=== PATIENT | male | born 1965 | race African-American/Black ===

== ENCOUNTER 2017-01-15 14:56 | Inpatient (IN) | payer MEDICARE, OTHER ==
[2017-01-15 17:30] VITALS: BMI 23.2
--- NOTE | 2017-01-15 19:34 | HP ---
Admission ROS [facility] Chief Complaint: I WANT TO GO TO REHAB Allergies/Adverse Reactions: Allergies Allergy/AdvReac Type Severity Reaction Status Date / Time No Known Allergies Allergy Verified 01/15/17 19:29 History of Present Illness: 51 YEARS OLD MALE WITH LONG HISTORY OF ALCOHOL COCAINE DEPENDENCE, HAS +PPD AND DEPRESSION IS ADMITTED TO REHAB Exam Limitations: No Limitations - Ebola screening Have you traveled outside of the country in the last 21 days: No Have you had contact with anyone from an Ebola affected area: No Have you been sick,other than usual withdrawal symptoms: No Do you have a fever: No - Review of Systems Constitutional: Loss of Appetite, Unintentional Wgt. Loss, Unexplained wgt Loss EENT: reports: No Symptoms Reported Respiratory: reports: No Symptoms reported Cardiac: reports: No Symptoms Reported GI: reports: No Symptoms Reported : reports: No Symptoms Reported Musculoskeletal: reports: Back Pain (SINCE 1989) Integumentary: reports: No Symptoms Reported Neuro: reports: No Symptoms reported Endocrine: reports: No Symptoms Reported Hematology: reports: No Symptoms Reported Psychiatric: reports: Judgement Intact, Orientated x3, Depressed Other Systems: Reviewed and Negative Patient History - Patient Medical History Hx Anemia: No Hx Asthma: No Hx Chronic Obstructive Pulmonary Disease (COPD): No Hx Cancer: No Hx Cardiac Disorders: No Hx Congestive Heart Failure: No Hx Hypertension: No Hx Hypercholesterolemia: No Hx Pacemaker: No HX Cerebrovascular Accident: No Hx Seizures: No Hx Dementia: No Hx Diabetes: No Hx Gastrointestinal Disorders: No Hx Liver Disease: No Hx Genitourinary Disorders: No Hx Sexually Transmitted Disorders: No Hx Renal Disease (ESRD): No Hx Thyroid Disease: No Hx Human Immunodeficiency Virus (HIV): No Hx Hepatitis C: No Hx Depression: Yes Hx Suicide Attempt: No Hx Bipolar Disorder: No Hx Schizophrenia: No - Patient Surgical History Past Surgical History: Yes Hx Neurologic Surgery: No Hx Cataract Extraction: No Hx Cardiac Surgery: No Hx Lung Surgery: Yes (RIGHT 1990) Hx Breast Surgery: No Hx Breast Biopsy: No Hx Abdominal Surgery: No Hx Appendectomy: No Hx Cholecystectomy: No Hx Genitourinary Surgery: No Hx Orthopedic Surgery: No Anesthesia Reaction: No - PPD History Previous Implant?: Yes Documented Results: Positive w/o proof Implanted On Prior [facility] Admission?: No PPD to be Administered?: No - Smoking Cessation Smoking history: Former smoker Have you smoked in the past 12 months: No Hx Chewing Tobacco Use: No Initiated information on smoking cessation: No - Substance & Tx. History Hx Alcohol Use: Yes Hx Substance Use: Yes Substance Use Type: Alcohol, Cocaine Hx Substance Use Treatment: Yes (2013 DETOX [facility]) - Substances Abused Alcohol Route: Oral Frequency: 3-6 times per week Amount used: [id number]+PINT VOLKA Age of first use: 16 Date of Last Use: 01/12/17 Cocaine Route: Smoking Frequency: 3-6 times per week Amount used: 300$ Age of first use: 18 Date of Last Use: 01/14/17 Family Disease History - Family Disease History Family Disease History: CA: Mother (), Other: Father (NO CONTACT), Mother Admission Physical Exam S - Vital Signs Vital Signs: Vital Signs - 24 hr 01/15/17 17:27 Temperature 97.2 F L Pulse Rate 86 Respiratory 20 Rate Blood Pressure 105/67 - Physical General Appearance: Yes: No Apparent Distress, Appropriately Dressed, Thin HEENTM: Yes: Hearing grossly Normal, Normal ENT Inspection, Normocephalic, Normal Voice Respiratory: Yes: Chest Non-Tender, Lungs Clear, Normal Breath Sounds, No Respiratory Distress, No Accessory Muscle Use Neck: Yes: Supple, Trachea in good position Breast: Yes: Breasts Symetrical Cardiology: Yes: Regular Rhythm, Regular Rate, S1, S2 Abdominal: Yes: Normal Bowel Sounds, Non Tender, Soft Genitourinary: Yes: Within Normal Limits Back: Yes: Normal Inspection Musculoskeletal: Yes: full range of Motion, Gait Steady, Back pain Extremities: Yes: Normal Range of Motion, Non-Tender, Inflammation Neurological: Yes: Alert, Motor Strength 5/5, Normal Response, Depressed Affect Integumentary: Yes: Normal Color, Warm Lymphatic: Yes: Within Normal Limits - Diagnostic (1) Alcohol dependence with uncomplicated withdrawal Current Visit: Yes Status: Acute (2) Cocaine dependence, uncomplicated Current Visit: Yes Status: Chronic (3) Weight loss Current Visit: Yes Status: Acute (4) Chronic back pain Current Visit: Yes Status: Chronic Qualifiers: Back pain location: low back pain Back pain laterality: bilateral Sciatica presence: with sciatica Sciatica laterality: bilateral sciatica Qualified Code(s): M54.42 - Lumbago with sciatica, left side; M54.41 - Lumbago with sciatica, right side; G89.29 - Other chronic pain (5) Depression (emotion) Current Visit: Yes Status: Resolved Qualifiers: Depression Type: dysthymia Qualified Code(s): F34.1 - Dysthymic disorder (6) Positive PPD, treated Current Visit: Yes Status: Resolved Cleared for Admission [facility] - Detox or Rehab [facility] Level of Care: Observation Bed Detox Regimen/Protocol: Not Applicable Claeared for Rehab Admission: Yes [facility] Breath Alcohol Content Breath Alcohol Content: 0 Urine Drug Screen - Results Drug Screen Negative: No Urine Drug Screen Results: THC-Marijuana, EUGENE-Cocaine
[2017-01-15] MEDS ORDERED: ACETAMINOPHEN 325 MG TABLET (FP) PO PRN (19:38)
[2017-01-15] MEDS ORDERED: MAGNESIUM CITRATE 300 ML BOTTLE PO PRN (19:38)
[2017-01-15] MEDS ORDERED: hydrOXYzine PAMOATE 50 MG CAPSULE (FP) PO PRN (19:38)
[2017-01-15] MEDS ORDERED: MAG HYDROX/AL HYDROX/SIMETH 30 ML UNIT-DOSE CUP PO PRN (19:38)
[2017-01-15] MEDS ORDERED: guaiFENesin/D-METHORPHAN HB 10 ML UNIT-DOSE CUPS PO PRN (19:38)
[2017-01-15] MEDS ORDERED: MENTHOL/PHENOL 1 EACH UD MM PRN (19:38)
[2017-01-15] MEDS ORDERED: LOPERAMIDE HCL 2 MG CAPSULE PO PRN (19:38)
[2017-01-15] MEDS ORDERED: MAGNESIUM HYDROX 2400MG/30ML ORAL SUSPENSION 30 ML CUP PO PRN (19:38)
[2017-01-15] MEDS ORDERED: diphenhydrAMINE HCL 50 MG CAPSULE PO PRN (19:38)
[2017-01-15] MEDS: CYCLOBENZAPRINE HCL 10 MG TABLET (FP) PO PRN (21:33)
[2017-01-15] MEDS: THIAMINE HCL 100 MG TABLET (FP) PO SCH (21:33)
[2017-01-15] MEDS: GABAPENTIN 300 MG CAPSULE (FP) PO SCH (21:34)
[2017-01-15 22:14] LABS: URINE APPEARANCE SLCLOUDY; URINE BILIRUBIN NEGATIVE (NEGATIVE); URINE BLOOD NEGATIVE (NEGATIVE); URINE COLOR YELLOW; URINE GLUCOSE (UA) NEGATIVE (NEGATIVE); URINE KETONE TRACE (NEGATIVE); URINE LEUK ESTERASE NEGATIVE (NEGATIVE); URINE NITRITE NEGATIVE (NEGATIVE); URINE PROTEIN NEGATIVE (NEGATIVE); URINE UROBILINOGEN NEGATIVE mg/dL (0.2-1.0)
[2017-01-16 10:06] LABS: MCH 30.1 pg (25.7-33.7); MCHC 32.9 g/dl (32.0-35.9); MEAN CELL VOLUME 91.7 fl (80-96); PLATELET COUNT 280 K/MM3 (134-434); WHITE BLOOD COUNT 4.8 K/mm3 (4.0-10.0)
[2017-01-16] MEDS: PRENATAL VITAMINS W/ FOLIC ACID TABLET (FP) PO SCH (10:06)
[2017-01-16 10:38] LABS: ANION GAP 6 (8-16); CALCIUM 8.9 mg/dL (8.5-10.1); CO2 28 mmol/L (21-32); CREATININE 1.2 mg/dL (0.7-1.3); GLUCOSE,RANDOM 92 mg/dL (74-106); SGOT/AST 11 U/L (15-37); SGPT/ALT 20 U/L (12-78)
[2017-01-16 10:40] LABS: ALK PHOS 103 U/L (45-117); BILIRUBIN,TOTAL 0.5 mg/dL (0.2-1.0); TOT PROT 6.1 g/dl (6.4-8.2)
--- NOTE | 2017-01-16 11:07 | HP ---
Psychiatrist Admission - Data Date of interview: 01/16/17 Admission source: [facility] Identifying data: This is the +second 3 [facility] rehabilitation admission for thsi 51 year old single Black male father of one, he is domiciled and supported on SSD. Medical History: Patient reports chronic back pain, lung surgery in 1990. Psychiatric History: Patient reports first psychiatric contact in 1996 to address depression,which he feels is due the drugs he was using at that time, [facility]ia[facility] and started Zoloft. Since then was on and off medications.Reports no history of psychiatric treatment. Reports his primary MD prescribes him Zoloft 50 mg po daily. Denies history of suicidal attempts. Physical/Sexual Abuse/Trauma History: Patient denies history of abuse. Vital Signs: Vital Signs - 24 hr 01/15/17 01/16/17 01/16/17 17:27 00:30 03:30 Temperature 97.2 F L Pulse Rate 86 Respiratory 20 18 18 Rate Blood Pressure 105/67 01/16/17 07:13 Temperature 97.7 F Pulse Rate 79 Respiratory 18 Rate Blood Pressure 111/64 Allergies/Adverse Reactions: Allergies Allergy/AdvReac Type Severity Reaction Status Date / Time No Known Allergies Allergy Verified 01/15/17 19:29 Date of last physical exam: 01/15/17 Concur with the findings of this exam: Yes - Substance Abuse/Tx History Hx Alcohol Use: Yes (start ta age of 17) Substance Use Type: Alcohol (daily vodka 1 pint daily, beer 4 40 oz beer daily) , Cocaine (started at age of 18, over $1000 a week) Hx Substance Use Treatment: Yes ([facility] [place]) - Admission Criteria Previous failed treatment: Yes Poor recovery environment: Yes Comorbidities: Yes Lacks judgement: Yes Mental Status Exam - Mental Status Exam Alert and Oriented to: Time, Place, Person Cognitive Function: Good Patient Appearance: Unkempt Mood: Hopeful Affect: Appropriate, Mood Congruent Patient Behavior: Appropriate, Cooperative Speech Pattern: Clear, Appropriate Voice Loudness: Normal Thought Process: Intact, Goal Oriented Thought Disorder: Not Present Hallucinations: Denies Suicidal Ideation: Denies Homicidal Ideation: Denies Insight/Judgement: Fair Sleep: Fair Appetite: Good Muscle strength/Tone: Normal Gait/Station: Normal Psychiatric Findings - Problem List ([place] 1, 2,3) (1) Cocaine dependence Current Visit: Yes Status: Acute (2) Alcohol dependence Current Visit: Yes Status: Acute (3) Mood disorder Current Visit: Yes Status: Acute - Initial Treatment Plan Initial Treatment Plan: Will continue Zoloft 50 mg po, monitor progress as needed.
[2017-01-16] MEDS: THIAMINE HCL 100 MG TABLET (FP) PO SCH (21:19)
[2017-01-16] MEDS: GABAPENTIN 300 MG CAPSULE (FP) PO SCH (21:19)
[2017-01-17] MEDS: PRENATAL VITAMINS W/ FOLIC ACID TABLET (FP) PO SCH (10:16)
[2017-01-17] MEDS: SERTRALINE HCL 50 MG TABLET (FP) PO SCH (10:16)
--- NOTE | 2017-01-17 12:57 | EKG ---
Test Reason : Blood Pressure : / mmHG Vent. Rate : 079 BPM Atrial Rate : 079 BPM P-R Int : 180 ms QRS Dur : 102 ms QT Int : 376 ms P-R-T Axes : 069 053 063 degrees QTc Int : 431 ms NORMAL SINUS RHYTHM NORMAL ECG NO PREVIOUS ECGS AVAILABLE Confirmed by FREYA GAO, SAAD ([id number]) on 01/17/2017 12:57:45 PM Referred By: Confirmed By:SAAD PILLAI MD
[2017-01-17] MEDS: CYCLOBENZAPRINE HCL 10 MG TABLET (FP) PO PRN (21:18)
[2017-01-17] MEDS: METHYL SALICYLATE/MENTHOL OINT 30 GM TUBE TP SCH (21:18)
[2017-01-17] MEDS: THIAMINE HCL 100 MG TABLET (FP) PO SCH (21:19)
[2017-01-17] MEDS: GABAPENTIN 300 MG CAPSULE (FP) PO SCH (21:19)
[2017-01-18] MEDS: PRENATAL VITAMINS W/ FOLIC ACID TABLET (FP) PO SCH (10:21)
[2017-01-18] MEDS: SERTRALINE HCL 50 MG TABLET (FP) PO SCH (10:21)
[2017-01-18] MEDS: METHYL SALICYLATE/MENTHOL OINT 30 GM TUBE TP SCH ×2 (10:22→21:33)
[2017-01-18] MEDS: GABAPENTIN 300 MG CAPSULE (FP) PO SCH (21:33)
[2017-01-18] MEDS: THIAMINE HCL 100 MG TABLET (FP) PO SCH (21:33)
[2017-01-19] MEDS: PRENATAL VITAMINS W/ FOLIC ACID TABLET (FP) PO SCH (10:20)
[2017-01-19] MEDS: SERTRALINE HCL 50 MG TABLET (FP) PO SCH (10:20)
[2017-01-19] MEDS: METHYL SALICYLATE/MENTHOL OINT 30 GM TUBE TP SCH ×2 (10:21→21:11)
[2017-01-19] MEDS: GABAPENTIN 300 MG CAPSULE (FP) PO SCH (21:11)
[2017-01-19] MEDS: THIAMINE HCL 100 MG TABLET (FP) PO SCH (21:12)
[2017-01-20] MEDS: METHYL SALICYLATE/MENTHOL OINT 30 GM TUBE TP SCH ×2 (10:10→22:06)
[2017-01-20] MEDS: SERTRALINE HCL 50 MG TABLET (FP) PO SCH (10:10)
[2017-01-20] MEDS: PRENATAL VITAMINS W/ FOLIC ACID TABLET (FP) PO SCH (10:10)
[2017-01-20] MEDS: THIAMINE HCL 100 MG TABLET (FP) PO SCH (21:56)
[2017-01-20] MEDS: GABAPENTIN 300 MG CAPSULE (FP) PO SCH (21:56)
[2017-01-21] MEDS: SERTRALINE HCL 50 MG TABLET (FP) PO SCH (10:04)
[2017-01-21] MEDS: METHYL SALICYLATE/MENTHOL OINT 30 GM TUBE TP SCH ×2 (10:04→21:59)
[2017-01-21] MEDS: PRENATAL VITAMINS W/ FOLIC ACID TABLET (FP) PO SCH (10:04)
[2017-01-21] MEDS: THIAMINE HCL 100 MG TABLET (FP) PO SCH (22:00)
[2017-01-21] MEDS: GABAPENTIN 300 MG CAPSULE (FP) PO SCH (22:00)
[2017-01-21] MEDS: CYCLOBENZAPRINE HCL 10 MG TABLET (FP) PO PRN (22:01)
[2017-01-22] MEDS: PRENATAL VITAMINS W/ FOLIC ACID TABLET (FP) PO SCH (10:11)
[2017-01-22] MEDS: SERTRALINE HCL 50 MG TABLET (FP) PO SCH (10:11)
[2017-01-22] MEDS: METHYL SALICYLATE/MENTHOL OINT 30 GM TUBE TP SCH ×2 (10:12→21:52)
--- NOTE | 2017-01-22 14:00 | PN ---
[facility] Progress Note Note: low back pain,sciatica on flexeril 10 mgs po tid prn motrin 400 mgs po prn or pain 6 hrs lidoderm patch to back close monitoring
[2017-01-22] MEDS: IBUPROFEN 400 MG TABLET (FP) PO PRN (15:43)
[2017-01-22] MEDS: LIDOCAINE 5% TOPICAL PATCH TP SCH (17:11)
[2017-01-22] MEDS: CYCLOBENZAPRINE HCL 10 MG TABLET (FP) PO PRN (21:51)
[2017-01-22] MEDS: GABAPENTIN 300 MG CAPSULE (FP) PO SCH (21:51)
[2017-01-22] MEDS: THIAMINE HCL 100 MG TABLET (FP) PO SCH (21:52)
[2017-01-22] MEDS: LIDOCAINE PATCH REMOVAL MC SCH (21:52)
[2017-01-23] MEDS: PRENATAL VITAMINS W/ FOLIC ACID TABLET (FP) PO SCH (10:22)
[2017-01-23] MEDS: LIDOCAINE 5% TOPICAL PATCH TP SCH (10:22)
[2017-01-23] MEDS: METHYL SALICYLATE/MENTHOL OINT 30 GM TUBE TP SCH ×2 (10:22→22:12)
[2017-01-23] MEDS: SERTRALINE HCL 50 MG TABLET (FP) PO SCH (10:22)
[2017-01-23 11:36] LABS: HIV 1 & 2 AB NEGATIVE; HIV 1 AGp24 NEGATIVE
[2017-01-23] MEDS: GABAPENTIN 300 MG CAPSULE (FP) PO SCH (22:13)
[2017-01-23] MEDS: CYCLOBENZAPRINE HCL 10 MG TABLET (FP) PO PRN (22:13)
[2017-01-23] MEDS: LIDOCAINE PATCH REMOVAL MC SCH (22:14)
[2017-01-23] MEDS: THIAMINE HCL 100 MG TABLET (FP) PO SCH (22:14)
[2017-01-24] MEDS: LIDOCAINE 5% TOPICAL PATCH TP SCH (10:28)
[2017-01-24] MEDS: SERTRALINE HCL 50 MG TABLET (FP) PO SCH (10:28)
[2017-01-24] MEDS: METHYL SALICYLATE/MENTHOL OINT 30 GM TUBE TP SCH ×2 (10:28→21:52)
[2017-01-24] MEDS: PRENATAL VITAMINS W/ FOLIC ACID TABLET (FP) PO SCH (10:28)
[2017-01-24] MEDS: THIAMINE HCL 100 MG TABLET (FP) PO SCH (21:52)
[2017-01-24] MEDS: CYCLOBENZAPRINE HCL 10 MG TABLET (FP) PO PRN (21:52)
[2017-01-24] MEDS: LIDOCAINE PATCH REMOVAL MC SCH (21:53)
[2017-01-24] MEDS: GABAPENTIN 300 MG CAPSULE (FP) PO SCH (21:53)
[2017-01-25] MEDS: GABAPENTIN 300 MG CAPSULE (FP) PO SCH ×2 (10:39→21:28)
[2017-01-25] MEDS: SERTRALINE HCL 50 MG TABLET (FP) PO SCH (10:39)
[2017-01-25] MEDS: LIDOCAINE 5% TOPICAL PATCH TP SCH (10:39)
[2017-01-25] MEDS: PRENATAL VITAMINS W/ FOLIC ACID TABLET (FP) PO SCH (10:39)
[2017-01-25] MEDS: METHYL SALICYLATE/MENTHOL OINT 30 GM TUBE TP SCH ×2 (10:40→21:28)
[2017-01-25] MEDS: THIAMINE HCL 100 MG TABLET (FP) PO SCH (21:27)
[2017-01-25] MEDS: LIDOCAINE PATCH REMOVAL MC SCH (21:28)
[2017-01-25] MEDS: CYCLOBENZAPRINE HCL 10 MG TABLET (FP) PO PRN (21:29)
[2017-01-26] MEDS: SERTRALINE HCL 50 MG TABLET (FP) PO SCH (10:22)
[2017-01-26] MEDS: PRENATAL VITAMINS W/ FOLIC ACID TABLET (FP) PO SCH (10:22)
[2017-01-26] MEDS: GABAPENTIN 300 MG CAPSULE (FP) PO SCH ×2 (10:22→22:09)
[2017-01-26] MEDS: METHYL SALICYLATE/MENTHOL OINT 30 GM TUBE TP SCH ×2 (10:23→22:09)
[2017-01-26] MEDS: LIDOCAINE 5% TOPICAL PATCH TP SCH (10:23)
[2017-01-26] MEDS: CYCLOBENZAPRINE HCL 10 MG TABLET (FP) PO PRN (22:09)
[2017-01-26] MEDS: THIAMINE HCL 100 MG TABLET (FP) PO SCH (22:10)
[2017-01-26] MEDS: LIDOCAINE PATCH REMOVAL MC SCH (22:10)
[2017-01-27] MEDS: PRENATAL VITAMINS W/ FOLIC ACID TABLET (FP) PO SCH (10:29)
[2017-01-27] MEDS: GABAPENTIN 300 MG CAPSULE (FP) PO SCH ×2 (10:29→21:33)
[2017-01-27] MEDS: SERTRALINE HCL 50 MG TABLET (FP) PO SCH (10:29)
[2017-01-27] MEDS: LIDOCAINE 5% TOPICAL PATCH TP SCH (10:30)
[2017-01-27] MEDS: METHYL SALICYLATE/MENTHOL OINT 30 GM TUBE TP SCH ×2 (10:30→21:33)
[2017-01-27] MEDS: IBUPROFEN 400 MG TABLET (FP) PO PRN (17:22)
[2017-01-27] MEDS: CYCLOBENZAPRINE HCL 10 MG TABLET (FP) PO PRN (21:33)
[2017-01-27] MEDS: THIAMINE HCL 100 MG TABLET (FP) PO SCH (21:34)
[2017-01-27] MEDS: LIDOCAINE PATCH REMOVAL MC SCH (21:34)
[2017-01-28] MEDS: GABAPENTIN 300 MG CAPSULE (FP) PO SCH ×2 (09:50→21:38)
[2017-01-28] MEDS: METHYL SALICYLATE/MENTHOL OINT 30 GM TUBE TP SCH ×2 (09:50→21:38)
[2017-01-28] MEDS: SERTRALINE HCL 50 MG TABLET (FP) PO SCH (09:50)
[2017-01-28] MEDS: PRENATAL VITAMINS W/ FOLIC ACID TABLET (FP) PO SCH (09:50)
[2017-01-28] MEDS: LIDOCAINE 5% TOPICAL PATCH TP SCH (09:51)
[2017-01-28] MEDS: P-EPHED 60MG/TRIPROLIDI 2.5MG TABLET PO PRN (20:10)
[2017-01-28] MEDS: CYCLOBENZAPRINE HCL 10 MG TABLET (FP) PO PRN (21:37)
[2017-01-28] MEDS: THIAMINE HCL 100 MG TABLET (FP) PO SCH (21:38)
[2017-01-28] MEDS: LIDOCAINE PATCH REMOVAL MC SCH (21:38)
[2017-01-29] MEDS: P-EPHED 60MG/TRIPROLIDI 2.5MG TABLET PO PRN (06:02)
[2017-01-29] MEDS: IBUPROFEN 400 MG TABLET (FP) PO PRN (06:02)
[2017-01-29] MEDS: PRENATAL VITAMINS W/ FOLIC ACID TABLET (FP) PO SCH (09:57)
[2017-01-29] MEDS: METHYL SALICYLATE/MENTHOL OINT 30 GM TUBE TP SCH ×2 (09:58→21:33)
[2017-01-29] MEDS: GABAPENTIN 300 MG CAPSULE (FP) PO SCH ×2 (09:58→21:32)
[2017-01-29] MEDS: SERTRALINE HCL 50 MG TABLET (FP) PO SCH (09:58)
[2017-01-29] MEDS: LIDOCAINE 5% TOPICAL PATCH TP SCH (09:58)
[2017-01-29] MEDS: CYCLOBENZAPRINE HCL 10 MG TABLET (FP) PO PRN (21:31)
[2017-01-29] MEDS: THIAMINE HCL 100 MG TABLET (FP) PO SCH (21:32)
[2017-01-29] MEDS: LIDOCAINE PATCH REMOVAL MC SCH (21:33)
--- NOTE | 2017-01-30 06:38 | PN ---
Psychiatric Progress Note Vital Signs: Vital Signs Period Temp Pulse Resp BP Sys/Tan Pulse Ox Last 24 Hr 98 F 88 18-18 119/92 Date of Session: 01/30/17 Chief Complaint:: Discharge Note HPI: Patient addressing Alcohol and Cocaine Dependence comorbid with Mood Disorder ROS: Chronic back pain and +PPD treated were medically managed Current Medications: Active Medications Generic Name Dose Route Start Last Admin Trade Name Freq PRN Reason Stop Dose Admin Acetaminophen 650 mg 01/15/17 19:38 01/28/17 13:51 Tylenol - PO 650 mg Q4H PRN Administration PAIN Al Hydroxide/Mg Hydroxide 30 ml 01/15/17 19:38 Mylanta Oral Suspension - PO Q6H PRN DYSPEPSIA Cyclobenzaprine HCl 10 mg 01/15/17 19:40 01/29/17 21:31 Flexeril - PO 10 mg TID PRN Administration MUSCLE SPASMS Diphenhydramine HCl 50 mg 01/15/17 19:38 Benadryl - PO HSMR1 PRN INSOMNIA Eucalyptus/Menthol/Phenol/Sorbitol 1 each 01/15/17 19:38 Cepastat Lozenge - MM Q4H PRN SORE THROAT Gabapentin 300 mg 01/24/17 22:00 01/29/17 21:32 Neurontin - PO 300 mg BID DELFINO Administration Guaifenesin 10 ml 01/15/17 19:38 Robitussin Dm - PO Q6H PRN COUGH Hydroxyzine Pamoate 50 mg 01/15/17 19:38 Vistaril - PO Q4H PRN AGITATION Ibuprofen 400 mg 01/15/17 19:38 01/29/17 06:02 Motrin - PO 400 mg Q6H PRN Administration SEVERE PAIN Lidocaine 1 patch 01/22/17 16:00 01/29/17 09:58 Lidoderm Patch - TP 1 patch DAILY DELFINO Administration Loperamide HCl 4 mg 01/15/17 19:38 Imodium - PO Q6H PRN DIARRHEA Magnesium Citrate 300 ml 01/15/17 19:38 Citroma - PO Q48H PRN CONSTIPATION Magnesium Hydroxide 30 ml 01/15/17 19:38 Milk Of Magnesia - PO DAILY PRN CONSTIPATION Methyl Salicylate 1 applic 01/17/17 22:00 01/29/17 21:33 Ishmael-Hess - TP 1 applic BID DELFINO Administration Miscellaneous 1 each 01/22/17 22:00 01/29/17 21:33 Lidoderm Patch Removal MC 1 each DAILY@2200 DELFINO Administration Multivit/Folic Acid/Iron 1 tab 01/16/17 10:00 01/29/17 09:57 Vitamins ([facility]) - PO 1 tab DAILY DELFINO Administration Pseudoephedrine/Triprolidine 1 combo 01/15/17 19:38 01/29/17 06:02 Actifed - PO 1 combo TID PRN Administration NASAL CONGESTION Sertraline HCl 50 mg 01/17/17 10:00 01/29/17 09:58 Zoloft - PO 50 mg DAILY DELFINO Administration Thiamine HCl 100 mg 01/15/17 22:00 01/29/17 21:32 Vitamin B1 - PO Not Given HS DELFINO Current Side Effect: No Lab tests ordered: Yes Lab tests reviewed: Yes Provider note:: Patient has completed this program today. He has met his treatment goals and will continue to address his issues in outpatient treament at [facility]. Told card writer hand that from his participation in this program , he has learned that in order to stay sober he has to listen to learn as well as surrounding himself with a sober network including a sponsor. He responded well to Zoloft 50 mg po daily. Sript for 30 days supply of that medication is electronically transmitted to [facility]. Patient is stable for discharge today Total face to face time:: 35 Mental Status Exam - Mental Status Exam Alert and Oriented to: Time, Place, Person Cognitive Function: Fair Patient Appearance: Well Groomed Mood: Hopeful, Euthymic Affect: Appropriate Patient Behavior: Cooperative Speech Pattern: Clear Voice Loudness: Normal Thought Process: Intact, Goal Oriented Thought Disorder: Not Present Hallucinations: Denies Suicidal Ideation: Denies Homicidal Ideation: Denies Insight/Judgement: Fair Sleep: Fair Appetite: Good Muscle strength/Tone: Normal Gait/Station: Normal Psychiatric Treatment Plan - Problem List (1) Alcohol dependence Current Visit: Yes (2) Cocaine dependence Current Visit: Yes (3) Mood disorder Current Visit: Yes (4) Sciatica Current Visit: Yes (5) Chronic back pain Current Visit: Yes Qualifiers: Back pain location: low back pain Back pain laterality: bilateral Sciatica presence: with sciatica Sciatica laterality: bilateral sciatica Qualified Code(s): M54.42 - Lumbago with sciatica, left side; G89.29 - Other chronic pain (6) Positive PPD, treated Current Visit: Yes Initial treatment plan: Patient is discharged today and refer to [facility] for outpatient treatment
[2017-01-30 06:47] VITALS: BP 145/76; PULSE 103; TEMP 98.4
[2017-01-30] MEDS: PRENATAL VITAMINS W/ FOLIC ACID TABLET (FP) PO SCH (09:49)
[2017-01-30] MEDS: SERTRALINE HCL 50 MG TABLET (FP) PO SCH (09:49)
[2017-01-30] MEDS: GABAPENTIN 300 MG CAPSULE (FP) PO SCH (09:50)
[2017-01-30] MEDS: METHYL SALICYLATE/MENTHOL OINT 30 GM TUBE TP SCH (09:50)
[2017-01-30] MEDS: LIDOCAINE 5% TOPICAL PATCH TP SCH (09:50)
== END 2017-01-30 10:00 | disposition home or self-care (01) | DRG 895 ==
LOC: YASAS 14:56 → Y3W 19:49
PROVIDERS: ADMIT Psychiatry & Neurology Psychiatry; ATTEND Psychiatry & Neurology Psychiatry
PROC: HZ42ZZZ Group Counseling for Substance Abuse Treatment, Cognitive-Behavioral (ICD-10-PCS; principal; 2017-01-15)
DX: F10.20 Alcohol dependence, uncomplicated (principal); F14.20 Cocaine dependence, uncomplicated; F34.1 Dysthymic disorder; M54.42 Lumbago with sciatica, left side; G89.29 Other chronic pain; R76.11 Nonspecific reaction to tuberculin skin test without active tuberculosis; Z87.891 Personal history of nicotine dependence; Z87.898 Personal history of other specified conditions
CPT/HCPCS: 36415; 71020-TC; 80053; 81003; 85027; 86593; 86803; 87389; 93005; 93010

== ENCOUNTER 2018-09-10 11:00 | Inpatient (IN) | payer MEDICARE, OTHER ==
[2018-09-10 13:06] VITALS: BMI 24.0
--- NOTE | 2018-09-10 13:31 | HP ---
CIWA Score Nausea/Vomitin-No Nausea/No Vomiting Muscle Tremors: 1-None Visible, but [place] Anxiety: 3 Agitation: 0-Normal Activity Paroxysmal Sweats: 2 Orientation: 0-Oriented Tacttile Disturbances: 2-Mild Itch/Numbness/Burn Auditory Disturbances: 0-None Visual Disturbances: 0-None Headache: 0-None Present CIWA-Ar Total Score: 8 - Admission Criteria [facility] Guidelines: Admission for Medically Managed Detox: Requires at least one of the followin. CIWA greater than 12 2. Seizures within the past 24 hours 3. Delirium tremens within the past 24 hours 4. Hallucinations within the past 24 hours 5. Acute intervention needed for co occurring medical disorder 6. Acute intervention needed for co occurring psychiatric disorder 7. Severe withdrawal that cannot be handled at a lower level of care (continued vomiting, continued diarrhea, abnormal vital signs) requiring intravenous medication and/or fluids 8. Patient presents the following: Acute intervention needed for co-occurring med or psych disorder Admission Criteria Met: Admission criteria met Admission ROS [facility] Chief Complaint: " alcohol detox" Allergies/Adverse Reactions: Allergies Allergy/AdvReac Type Severity Reaction Status Date / Time No Known Allergies Allergy Verified 01/15/17 19:29 History of Present Illness: 53 yo male with hx of nicotine, alcohol and cocaine dependence, and occasional marijuana use, is here seeking detox. Utox positive for LUDIN, THC, MTD, BZO. Denies BZO , opiate or MTD use. Reports currently drinking 4x40 oz beer and one pint of wisky per day in the past two years. Longest period of sobriety [facility] one year in 1997, since then been able to maintain sobriety for about three months at time. Last rehab [facility] December 2016. PMHX: Sciatica, neuropathy, OA. Psych: major depression on sertraline. Denies SI/HI or hx of suicide attempt. Reports remote hx of syncope 1989. Exam Limitations: No Limitations - Ebola screening Have you traveled outside of the country in the last 21 days: No (N) Have you had contact with anyone from an Ebola affected area: No Do you have a fever: No - Review of Systems Constitutional: Night Sweats, Changes in sleep, Unintentional Wgt. Loss EENT: reports: No Symptoms Reported Respiratory: reports: Other ("SOB when I use drugs") Cardiac: reports: No Symptoms Reported GI: reports: Poor Fluid Intake, Indigestion, Abdominal cramping : reports: No Symptoms Reported Musculoskeletal: reports: Back Pain Integumentary: reports: Other (pus on left big toes, lost toe nail) Neuro: reports: Numbness (b/l LE) Endocrine: reports: Increased Thirst Hematology: reports: No Symptoms Reported Psychiatric: reports: Orientated x3, Anxious, other (formication when smiking ludin) Other Systems: Reviewed and Negative Patient History - Patient Medical History Hx Anemia: No Hx Asthma: No Hx Chronic Obstructive Pulmonary Disease (COPD): No Hx Cancer: No Hx Cardiac Disorders: No Hx Congestive Heart Failure: No Hx Hypertension: No Hx Hypercholesterolemia: No Hx Pacemaker: No HX Cerebrovascular Accident: No Hx Seizures: No Hx Dementia: No Hx Diabetes: No Hx Gastrointestinal Disorders: No Hx Liver Disease: No Hx Genitourinary Disorders: No Hx Sexually Transmitted Disorders: Yes (gonorrhea ) Hx Renal Disease (ESRD): No Hx Thyroid Disease: No Hx Human Immunodeficiency Virus (HIV): No Hx Hepatitis C: No Hx Depression: Yes Hx Suicide Attempt: No Hx Bipolar Disorder: No Hx Schizophrenia: No - Patient Surgical History Past Surgical History: Yes Hx Neurologic Surgery: No Hx Cataract Extraction: No Hx Cardiac Surgery: No Hx Lung Surgery: Yes (RIGHT 1990) Hx Breast Surgery: No Hx Breast Biopsy: No Hx Abdominal Surgery: No Hx Appendectomy: No Hx Cholecystectomy: No Hx Genitourinary Surgery: No Hx Orthopedic Surgery: No Anesthesia Reaction: No - PPD History Previous Implant?: No (tb expose 1992 tx) Documented Results: Positive w/o proof PPD to be Administered?: No - Smoking Cessation Smoking history: Former smoker Have you smoked in the past 12 months: No Hx Chewing Tobacco Use: No Initiated information on smoking cessation: No - Substance & Tx. History Hx Alcohol Use: Yes Hx Substance Use: Yes Substance Use Type: Alcohol, Cocaine Hx Substance Use Treatment: Yes (December 2016) - Substances abused Alcohol Substance route: Oral Frequency: Daily Amount used: Beer (4)40 oz, Whiskey 1 pint Age of first use: 17 Date of last use: 09/08/18 Cocaine Substance route: Smoking Frequency: Daily Amount used: $600.00 Age of first use: 17 Date of last use: 09/08/18 Marijuana/Hashish Substance route: Smoking Frequency: 1-3 times last 30 days Amount used: 3-4 bags Age of first use: 16 Date of last use: 09/05/18 Family Disease History - Family Disease History Family Disease History: CA: Mother (), Other: Father (NO CONTACT), Mother Admission Physical Exam [facility] - Vital Signs Vital Signs: Vital Signs - 24 hr 09/10/18 09/10/18 12:55 13:14 Temperature 97.0 F L 97.0 F L Pulse Rate 84 84 Respiratory 18 18 Rate Blood Pressure 116/76 116/76 - Physical General Appearance: Yes: Appropriately Dressed, Thin, Anxious HEENTM: Yes: Hearing grossly Normal, Normal ENT Inspection, Normocephalic, Pharynx Normal, Tm's normal Respiratory: Yes: Chest Non-Tender, Lungs Clear, Normal Breath Sounds, No Respiratory Distress, No Accessory Muscle Use Neck: Yes: Within Normal Limits Breast: Yes: Breast Exam Deferred Cardiology: Yes: Regular Rhythm, Tachycardia Abdominal: Yes: Normal Bowel Sounds, Non Tender, Flat, Soft Genitourinary: Yes: Within Normal Limits Back: Yes: Normal Inspection Musculoskeletal: Yes: full range of Motion, Gait Steady, Pelvis Stable, Back pain Extremities: Yes: Normal Capillary Refill, Normal Inspection, Normal Range of Motion, Non-Tender, Other (missing nail (great big toes and 2nd left toe), serousanginous drain Left great toe) Neurological: Yes: employee benefits director II-XII NML intact, Fully Oriented, Alert, Motor Strength 5/5, Depressed Affect Integumentary: Yes: Normal Color, Warm, Diaphoresis Lymphatic: Yes: Within Normal Limits - Diagnostic (1) Alcohol dependence with uncomplicated withdrawal Current Visit: Yes Status: Acute (2) Cocaine dependence Current Visit: Yes Status: Acute Qualifiers: Substance use status: uncomplicated Qualified Code(s): F14.20 - Cocaine dependence, uncomplicated (3) Weight loss Current Visit: Yes Status: Acute (4) Chronic back pain Current Visit: Yes Status: Chronic Qualifiers: Back pain location: low back pain Back pain laterality: bilateral Sciatica presence: with sciatica Sciatica laterality: bilateral sciatica Qualified Code(s): M54.42 - Lumbago with sciatica, left side; M54.41 - Lumbago with sciatica, right side; G89.29 - Other chronic pain (5) Cocaine dependence, uncomplicated Current Visit: Yes Status: Chronic (6) Laceration of nail bed of toe Current Visit: Yes Status: Acute Qualifiers: Encounter type: initial encounter Qualified Code(s): S91.219A - Laceration without foreign body of unspecified toe(s) with damage to nail, initial encounter Cleared for Admission [facility] - Detox or Rehab [facility] Level of Care: Medically Managed Detox Regimen/Protocol: Librium Breathalyzer - Breathalyzer Breathalyzer: 0 Urine Drug Screen - Test Device Lot number: [id number] Expiration date: 04/26/20 - Control Is test valid?: Yes - Results Drug screen NEGATIVE: No Urine drug screen results: THC-Marijuana, LUDIN-Cocaine, MET-Methamphetamine, MTD- Methadone, BZO-Benzodiazepines Inpatient Rehab Admission - Rehab Decision to Admit Inpatient rehab admission?: No
[2018-09-10] MEDS ORDERED: MELATONIN 5 MG TABLETS PO PRN (13:48)
[2018-09-10] MEDS ORDERED: BISMUTH SUBSALICYLATE 524 MG/30 ML UD PO PRN (13:48)
[2018-09-10] MEDS ORDERED: ACETAMINOPHEN 325 MG TABLET (FP) PO PRN ×2 (13:48)
[2018-09-10] MEDS ORDERED: chlordiazePOXIDE HCL 10 MG CAPSULE PO PRN (13:48)
[2018-09-10] MEDS ORDERED: IBUPROFEN 400 MG TABLET (FP) PO PRN (13:48)
[2018-09-10] MEDS ORDERED: MAG HYDROX/AL HYDROX/SIMETH 30 ML UNIT-DOSE CUP PO PRN (13:48)
[2018-09-10] MEDS ORDERED: MAGNESIUM HYDROX 2400MG/30ML ORAL SUSPENSION 30 ML CUP PO PRN (13:48)
[2018-09-10] MEDS ORDERED: NICOTINE POLACRILEX 2 MG GUM BUC PRN (13:48)
[2018-09-10] MEDS ORDERED: MENTHOL/PHENOL 1 EACH UD MM PRN (13:48)
[2018-09-10] MEDS ORDERED: hydrOXYzine PAMOATE 25 MG CAPSULE (FP) PO PRN (13:48)
[2018-09-10] MEDS ORDERED: MAGNESIUM CITRATE 300 ML BOTTLE PO PRN (13:48)
[2018-09-10] MEDS ORDERED: BISMUTH SUBSALICYLATE 262 MG/15 ML BTL PO PRN (14:29)
[2018-09-10] MEDS: BACITRACIN 0.9 GM PACKET TP SCH ×2 (14:41→22:19)
[2018-09-10] MEDS: LIDOCAINE 5% TOPICAL PATCH TP SCH (14:41)
[2018-09-10 17:10] LABS: HEMOGLOBIN 13.3 GM/dL (11.7-16.9); MCH 30.9 pg (25.7-33.7); MCHC 34.1 g/dl (32.0-35.9); MEAN CELL VOLUME 90.6 fl (80-96); MEAN PLT VOLUME 8.1 fl (7.5-11.1); PLATELET COUNT 350 K/MM3 (134-434); RDW 13.9 % (11.9-15.9); WHITE BLOOD COUNT 4.6 K/mm3 (4.0-10.0)
[2018-09-10] MEDS: CEPHALEXIN MONOHYDRATE 250 MG CAPSULE (FP) PO SCH (17:17)
[2018-09-10 17:22] LABS: ALBUMIN 3.6 g/dl (3.4-5.0); ALK PHOS 80 U/L (45-117); ANION GAP 7 MMOL/L (8-16); BILIRUBIN,TOTAL 0.5 mg/dL (0.2-1); BLOOD UREA NITROGEN 18 mg/dL (7-18); CALCIUM 8.7 mg/dL (8.5-10.1); CHLORIDE 109 mmol/L (98-107); CO2 26 mmol/L (21-32); CREATININE 1.3 mg/dL (0.55-1.3); GLUCOSE,RANDOM 122 mg/dL (74-106); POTASSIUM 3.7 mmol/L (3.5-5.1); SGOT/AST 22 U/L (15-37); SGPT/ALT 26 U/L (13-61); SODIUM 142 mmol/L (136-145); TOT PROT 7.5 g/dl (6.4-8.2)
[2018-09-10 18:36] LABS: SICKLE CELL SCREEN NEGATIVE (NEGATIVE)
[2018-09-10] MEDS: chlordiazePOXIDE HCL 25 MG CAPSULE PO SCH (22:19)
[2018-09-10] MEDS: THIAMINE HCL 100 MG TABLET (FP) PO SCH (22:19)
[2018-09-10] MEDS: GABAPENTIN 300 MG CAPSULE (FP) PO SCH (22:19)
[2018-09-10] MEDS: LIDOCAINE PATCH REMOVAL MC SCH (22:20)
[2018-09-11] MEDS: CEPHALEXIN MONOHYDRATE 250 MG CAPSULE (FP) PO SCH ×5 (00:17→23:29)
[2018-09-11] MEDS: chlordiazePOXIDE HCL 25 MG CAPSULE PO SCH ×2 (05:36→12:07)
[2018-09-11] MEDS ORDERED: NICOTINE 14 MG/24 HOURS TOPICAL PATCH TD SCH (10:00)
[2018-09-11] MEDS: LIDOCAINE 5% TOPICAL PATCH TP SCH (10:19)
[2018-09-11] MEDS: PRENATAL VITAMINS W/ FOLIC ACID TABLET (FP) PO SCH (10:19)
[2018-09-11] MEDS: TIZANIDINE HCL 4 MG TABLET PO SCH (10:19)
[2018-09-11] MEDS: BACITRACIN 0.9 GM PACKET TP SCH ×2 (10:19→21:34)
--- NOTE | 2018-09-11 10:58 | CONSULT ---
[facility] Psychiatric Consult - Data Date of interview: 09/11/18 (Self-referred) Admission source: Self-referred Identifying data: Mr Palma is a 53 yeard old single Black male , father of a son in his mid 20's, unemployed receiving SSD, living in an SRO seeking detox treatment for alcohol, cocaine and cannabis Substance Abuse History: Reports history of alcohol, cocaine and marijuana use. Refer to addiction counselor's summary for further information Medical History: Significant for sciatica, neuropathy, history of treatment for gonnorhea, PPD+ and patial lobectomy right lung. Psychiatric History: Patient reports that his first psychiatric contact was in 1990 when he saw a staff psychiatrist at [facility], diagnosed with MDD and started on Zoloft. Reports that he has been taking that medication on & off since. Reports currently receiving outpatient psychiatric treatment at [facility]( [facility]) under Dr Mack Matthews and he is prescribed Zoloft 100 mg po daily. This is verified by external medication search(filled script for 30 days supply of Zoloft 100 mg/day on 07/02/18 at [facility]. At present, denies feeling depressed, S/H ideations. However, reports sleeping poorly Physical/Sexual Abuse/Trauma History: Denies history of emotional, physical or sexual abuse as well as DV relationship. No service Additional Comment: Reports history of few previous misdemeanor arrests, Mental Status Exam - Mental Status Exam Alert and Oriented to: Time, Place, Person Cognitive Function: Fair Patient Appearance: Well Groomed Mood: Hopeful, Euthymic Patient Behavior: Cooperative Speech Pattern: Clear Voice Loudness: Normal Thought Process: Intact, Goal Oriented Thought Disorder: Not Present Hallucinations: Denies Suicidal Ideation: Denies Homicidal Ideation: Denies Insight/Judgement: Poor Sleep: Poorly Appetite: Good Muscle strength/Tone: Normal Gait/Station: Normal Psychiatric Findings - Problem List ([place] 1, 2,3) (1) MDD (major depressive disorder) Current Visit: Yes Status: Chronic (2) Substance-induced sleep disorder Current Visit: Yes Status: Acute (3) Alcohol dependence with uncomplicated withdrawal Current Visit: Yes Status: Acute (4) Cocaine dependence Current Visit: Yes Status: Acute Qualifiers: Substance use status: uncomplicated Qualified Code(s): F14.20 - Cocaine dependence, uncomplicated (5) Cannabis abuse Current Visit: Yes Status: Acute (6) Chronic back pain Current Visit: Yes Status: Chronic Qualifiers: Back pain location: low back pain Back pain laterality: bilateral Sciatica presence: with sciatica Sciatica laterality: bilateral sciatica Qualified Code(s): M54.42 - Lumbago with sciatica, left side; M54.41 - Lumbago with sciatica, right side; G89.29 - Other chronic pain (7) Sciatica Current Visit: No Status: Chronic (8) Neuropathy Current Visit: Yes Status: Chronic - Initial Treatment Plan Initial Treatment Plan: 1) Continue Zoloft 100 mg po daily. 1) Start Melatonin 5 mg po HS prn for insomnia. 3) Contunue inpatient detoxification
--- NOTE | 2018-09-11 11:50 | PN ---
[facility] CIWA - CIWA Score Nausea/Vomitin-No Nausea/No Vomiting Muscle Tremors: 2 Anxiety: 2 Agitation: 3 Paroxysmal Sweats: 3 Orientation: 0-Oriented Tacttile Disturbances: 0-None Auditory Disturbances: 0-None Visual Disturbances: 0-None Headache: 0-None Present CIWA-Ar Total Score: 10 S Progress Note (SOAP) Subjective: sweats shakes I need my acid reflux medication interrupted sleep Objective: 09/11/18 11:49 Vital Signs Temperature 96.8 F L 09/11/18 09:36 Pulse Rate 65 09/11/18 09:36 Respiratory Rate 20 09/11/18 09:36 Blood Pressure 106/65 09/11/18 09:36 O2 Sat by Pulse Oximetry (%) Laboratory Tests 09/10/18 09/10/18 09/10/18 13:50 13:50 13:50 WBC 4.6 RBC 4.30 Hgb 13.3 Hct 39.0 MCV 90.6 MCH 30.9 MCHC 34.1 RDW 13.9 Plt Count 350 D MPV 8.1 Sickle Cell Screen Negative Sodium 142 Potassium 3.7 Chloride 109 H Carbon Dioxide 26 Anion Gap 7 L BUN 18 Creatinine 1.3 Creat Clearance w eGFR 57.97 Random Glucose 122 H Calcium 8.7 Total Bilirubin 0.5 AST 22 ALT 26 Alkaline Phosphatase 80 Total Protein 7.5 Albumin 3.6 RPR Titer Nonreactive aaox3 ambulating no acute distress Assessment: 09/11/18 11:49 withdrawal sx Plan: continue detox increase fluids zantac 150mg bid ordered
[2018-09-11] MEDS: SERTRALINE HCL 50 MG TABLET (FP) PO SCH (12:07)
[2018-09-11] MEDS: RANITIDINE HCL 150 MG TABLET (FP) PO SCH ×2 (12:07→21:35)
[2018-09-11] MEDS: GABAPENTIN 300 MG CAPSULE (FP) PO SCH (21:35)
[2018-09-11] MEDS: THIAMINE HCL 100 MG TABLET (FP) PO SCH (21:35)
[2018-09-11] MEDS: chlordiazePOXIDE 5 MG CAPSULE PO SCH (21:39)
[2018-09-11] MEDS: LIDOCAINE PATCH REMOVAL MC SCH (22:19)
[2018-09-12 01:15] LABS: PH,URINE 5.5 (5.0-8.0); URINE APPEARANCE Turbid; URINE BILIRUBIN 1+ (NEGATIVE); URINE COLOR Yellow; URINE GLUCOSE (UA) Negative (NEGATIVE); URINE KETONE Trace (NEGATIVE); URINE LEUK ESTERASE Negative (NEGATIVE); URINE NITRITE Negative (NEGATIVE); URINE PROTEIN Trace (NEGATIVE); URINE UROBILINOGEN 0.2 mg/dL (0.2-1.0)
[2018-09-12] MEDS: chlordiazePOXIDE 5 MG CAPSULE PO SCH ×2 (05:14→12:45)
[2018-09-12] MEDS: CEPHALEXIN MONOHYDRATE 250 MG CAPSULE (FP) PO SCH ×3 (05:15→17:33)
[2018-09-12] MEDS: TIZANIDINE HCL 4 MG TABLET PO SCH (10:07)
[2018-09-12] MEDS: PRENATAL VITAMINS W/ FOLIC ACID TABLET (FP) PO SCH (10:07)
[2018-09-12] MEDS: RANITIDINE HCL 150 MG TABLET (FP) PO SCH ×2 (10:07→22:25)
[2018-09-12] MEDS: BACITRACIN 0.9 GM PACKET TP SCH ×2 (10:07→22:25)
[2018-09-12] MEDS: SERTRALINE HCL 50 MG TABLET (FP) PO SCH (10:07)
[2018-09-12] MEDS: LIDOCAINE 5% TOPICAL PATCH TP SCH (10:08)
--- NOTE | 2018-09-12 11:04 | PN ---
S CIWA - CIWA Score Nausea/Vomitin-No Nausea/No Vomiting Muscle Tremors: 2 Anxiety: 1-Mildly Anxious Agitation: 2 Paroxysmal Sweats: 3 Orientation: 0-Oriented Tacttile Disturbances: 0-None Auditory Disturbances: 0-None Visual Disturbances: 0-None Headache: 0-None Present CIWA-Ar Total Score: 8 [facility] Progress Note (SOAP) Subjective: sweats anxiety Objective: 09/12/18 11:03 Vital Signs Temperature 97.9 F 09/12/18 10:48 Pulse Rate 70 09/12/18 10:48 Respiratory Rate 18 09/12/18 10:48 Blood Pressure 124/84 09/12/18 10:48 O2 Sat by Pulse Oximetry (%) Laboratory Tests 09/10/18 09/10/18 09/10/18 13:50 13:50 13:50 WBC 4.6 RBC 4.30 Hgb 13.3 Hct 39.0 MCV 90.6 MCH 30.9 MCHC 34.1 RDW 13.9 Plt Count 350 D MPV 8.1 Sickle Cell Screen Negative Sodium 142 Potassium 3.7 Chloride 109 H Carbon Dioxide 26 Anion Gap 7 L BUN 18 Creatinine 1.3 Creat Clearance w eGFR 57.97 Random Glucose 122 H Calcium 8.7 Total Bilirubin 0.5 AST 22 ALT 26 Alkaline Phosphatase 80 Total Protein 7.5 Albumin 3.6 Urine Color Urine Appearance Urine pH Ur Specific [place] Urine Protein Urine Glucose (UA) Urine Ketones Urine Blood Urine Nitrite Urine Bilirubin Urine Urobilinogen Ur Leukocyte Esterase RPR Titer Nonreactive 09/11/18 14:54 WBC RBC Hgb Hct MCV MCH MCHC RDW Plt Count MPV Sickle Cell Screen Sodium Potassium Chloride Carbon Dioxide Anion Gap BUN Creatinine Creat Clearance w eGFR Random Glucose Calcium Total Bilirubin AST ALT Alkaline Phosphatase Total Protein Albumin Urine Color Yellow Urine Appearance Turbid Urine pH 5.5 Ur Specific [place] >= 1.030 Urine Protein Trace Urine Glucose (UA) Negative Urine Ketones Trace Urine Blood Negative Urine Nitrite Negative Urine Bilirubin 1+ H Urine Urobilinogen 0.2 Ur Leukocyte Esterase Negative RPR Titer aaox3 ambulating no acute distress Assessment: 09/12/18 11:04 mild withdrawals sx Plan: continue detox increase fluids possible d/c tomorrow for rehab or he can be d/c on Sunday.
--- NOTE | 2018-09-12 12:16 | EKG ---
Test Reason : Blood Pressure : / mmHG Vent. Rate : 077 BPM Atrial Rate : 077 BPM P-R Int : 198 ms QRS Dur : 098 ms QT Int : 378 ms P-R-T Axes : 069 052 057 degrees QTc Int : 427 ms NORMAL SINUS RHYTHM NORMAL ECG WHEN COMPARED WITH ECG OF 15-JAN-2017 20:17, NO SIGNIFICANT CHANGE WAS FOUND Confirmed by AWA LOPEZ MD ([id number]) on 09/12/2018 12:16:17 PM Referred By: Confirmed By:AWA LOPEZ MD
[2018-09-12] MEDS ORDERED: chlordiazePOXIDE HCL 10 MG CAPSULE PO PRN (21:00)
[2018-09-12] MEDS: THIAMINE HCL 100 MG TABLET (FP) PO SCH (22:25)
[2018-09-12] MEDS: GABAPENTIN 300 MG CAPSULE (FP) PO SCH (22:25)
[2018-09-12] MEDS: chlordiazePOXIDE HCL 10 MG CAPSULE PO SCH (22:25)
[2018-09-12] MEDS: LIDOCAINE PATCH REMOVAL MC SCH (22:25)
[2018-09-13] MEDS: chlordiazePOXIDE HCL 10 MG CAPSULE PO SCH ×3 (05:14→22:53)
[2018-09-13] MEDS: SERTRALINE HCL 50 MG TABLET (FP) PO SCH (10:19)
[2018-09-13] MEDS: BACITRACIN 0.9 GM PACKET TP SCH ×2 (10:19→22:53)
[2018-09-13] MEDS: PRENATAL VITAMINS W/ FOLIC ACID TABLET (FP) PO SCH (10:19)
[2018-09-13] MEDS: RANITIDINE HCL 150 MG TABLET (FP) PO SCH ×2 (10:20→22:53)
[2018-09-13] MEDS: LIDOCAINE 5% TOPICAL PATCH TP SCH (10:20)
[2018-09-13] MEDS: TIZANIDINE HCL 4 MG TABLET PO SCH (10:20)
--- NOTE | 2018-09-13 11:09 | PN ---
[facility] Progress Note Note: Vital Signs Temperature 97.9 F 09/13/18 06:00 Pulse Rate 81 09/13/18 06:00 Respiratory Rate 18 09/13/18 06:00 Blood Pressure 118/81 09/13/18 06:00 O2 Sat by Pulse Oximetry (%) Laboratory Last Values WBC 4.6 K/mm3 (4.0-10.0) 09/10/18 13:50 RBC 4.30 M/mm3 (4.00-5.60) 09/10/18 13:50 Hgb 13.3 GM/dL (11.7-16.9) 09/10/18 13:50 Hct 39.0 % (35.4-49) 09/10/18 13:50 MCV 90.6 fl (80-96) 09/10/18 13:50 MCH 30.9 pg (25.7-33.7) 09/10/18 13:50 MCHC 34.1 g/dl (32.0-35.9) 09/10/18 13:50 RDW 13.9 % (11.9-15.9) 09/10/18 13:50 Plt Count 350 K/MM3 (134-434) D 09/10/18 13:50 MPV 8.1 fl (7.5-11.1) 09/10/18 13:50 Sickle Cell Screen Negative (NEGATIVE) 09/10/18 13:50 Sodium 142 mmol/L (136-145) 09/10/18 13:50 Potassium 3.7 mmol/L (3.5-5.1) 09/10/18 13:50 Chloride 109 mmol/L (98-107) H 09/10/18 13:50 Carbon Dioxide 26 mmol/L (21-32) 09/10/18 13:50 Anion Gap 7 MMOL/L (8-16) L 09/10/18 13:50 BUN 18 mg/dL (7-18) 09/10/18 13:50 Creatinine 1.3 mg/dL (0.55-1.3) 09/10/18 13:50 Creat Clearance w eGFR 57.97 (>60) 09/10/18 13:50 Random Glucose 122 mg/dL (74-106) H 09/10/18 13:50 Calcium 8.7 mg/dL (8.5-10.1) 09/10/18 13:50 Total Bilirubin 0.5 mg/dL (0.2-1) 09/10/18 13:50 AST 22 U/L (15-37) 09/10/18 13:50 ALT 26 U/L (13-61) 09/10/18 13:50 Alkaline Phosphatase 80 U/L (45-117) 09/10/18 13:50 Total Protein 7.5 g/dl (6.4-8.2) 09/10/18 13:50 Albumin 3.6 g/dl (3.4-5.0) 09/10/18 13:50 Urine Color Yellow 09/11/18 14:54 Urine Appearance Turbid 09/11/18 14:54 Urine pH 5.5 (5.0-8.0) 09/11/18 14:54 Ur Specific [place] >= 1.030 (1.010-1.035) 09/11/18 14:54 Urine Protein Trace (NEGATIVE) 09/11/18 14:54 Urine Glucose (UA) Negative (NEGATIVE) 09/11/18 14:54 Urine Ketones Trace (NEGATIVE) 09/11/18 14:54 Urine Blood Negative (NEGATIVE) 09/11/18 14:54 Urine Nitrite Negative (NEGATIVE) 09/11/18 14:54 Urine Bilirubin 1+ (NEGATIVE) H 09/11/18 14:54 Urine Urobilinogen 0.2 mg/dL (0.2-1.0) 09/11/18 14:54 Ur Leukocyte Esterase Negative (NEGATIVE) 09/11/18 14:54 RPR Titer Nonreactive (NONREACTIVE) 09/10/18 13:50 c/o interrupted sleep , constipation, denies abdominal pain Aox3 no distress , full ROM, ambulating in the unit, no ABD tenderness withdrawal sx constipation chronic increase po fluids continue to monitor d/c in AM
[2018-09-13] MEDS: GABAPENTIN 300 MG CAPSULE (FP) PO SCH (22:53)
[2018-09-13] MEDS: THIAMINE HCL 100 MG TABLET (FP) PO SCH (22:53)
[2018-09-13] MEDS: LIDOCAINE PATCH REMOVAL MC SCH (22:53)
--- NOTE | 2018-09-14 09:00 | DS ---
[facility] Detox Discharge Summary Admission Date: 09/10/18 Discharge Date: 09/14/18 - History Present History: Alcohol Dependence, Cannabis Dependence, Cocaine Dependence Additional Comments: Pt is discharged to [facility] rehab unit for continued care. Detox protocol completed. Pt is medically stable to be discharged to rehab. Pertinent Past History: Alcohol, cocaine, and cannabis use disorder. - Physical Exam Results Vital Signs: Vital Signs Temperature 98.1 F 09/14/18 06:00 Pulse Rate 70 09/14/18 06:00 Respiratory Rate 16 09/14/18 06:00 Blood Pressure 126/72 09/14/18 06:00 O2 Sat by Pulse Oximetry (%) Laboratory Last Values WBC 4.6 K/mm3 (4.0-10.0) 09/10/18 13:50 RBC 4.30 M/mm3 (4.00-5.60) 09/10/18 13:50 Hgb 13.3 GM/dL (11.7-16.9) 09/10/18 13:50 Hct 39.0 % (35.4-49) 09/10/18 13:50 MCV 90.6 fl (80-96) 09/10/18 13:50 MCH 30.9 pg (25.7-33.7) 09/10/18 13:50 MCHC 34.1 g/dl (32.0-35.9) 09/10/18 13:50 RDW 13.9 % (11.9-15.9) 09/10/18 13:50 Plt Count 350 K/MM3 (134-434) D 09/10/18 13:50 MPV 8.1 fl (7.5-11.1) 09/10/18 13:50 Sickle Cell Screen Negative (NEGATIVE) 09/10/18 13:50 Sodium 142 mmol/L (136-145) 09/10/18 13:50 Potassium 3.7 mmol/L (3.5-5.1) 09/10/18 13:50 Chloride 109 mmol/L (98-107) H 09/10/18 13:50 Carbon Dioxide 26 mmol/L (21-32) 09/10/18 13:50 Anion Gap 7 MMOL/L (8-16) L 09/10/18 13:50 BUN 18 mg/dL (7-18) 09/10/18 13:50 Creatinine 1.3 mg/dL (0.55-1.3) 09/10/18 13:50 Creat Clearance w eGFR 57.97 (>60) 09/10/18 13:50 Random Glucose 122 mg/dL (74-106) H 09/10/18 13:50 Calcium 8.7 mg/dL (8.5-10.1) 09/10/18 13:50 Total Bilirubin 0.5 mg/dL (0.2-1) 09/10/18 13:50 AST 22 U/L (15-37) 09/10/18 13:50 ALT 26 U/L (13-61) 09/10/18 13:50 Alkaline Phosphatase 80 U/L (45-117) 09/10/18 13:50 Total Protein 7.5 g/dl (6.4-8.2) 09/10/18 13:50 Albumin 3.6 g/dl (3.4-5.0) 09/10/18 13:50 Urine Color Yellow 09/11/18 14:54 Urine Appearance Turbid 09/11/18 14:54 Urine pH 5.5 (5.0-8.0) 09/11/18 14:54 Ur Specific [place] >= 1.030 (1.010-1.035) 09/11/18 14:54 Urine Protein Trace (NEGATIVE) 09/11/18 14:54 Urine Glucose (UA) Negative (NEGATIVE) 09/11/18 14:54 Urine Ketones Trace (NEGATIVE) 09/11/18 14:54 Urine Blood Negative (NEGATIVE) 09/11/18 14:54 Urine Nitrite Negative (NEGATIVE) 09/11/18 14:54 Urine Bilirubin 1+ (NEGATIVE) H 09/11/18 14:54 Urine Urobilinogen 0.2 mg/dL (0.2-1.0) 09/11/18 14:54 Ur Leukocyte Esterase Negative (NEGATIVE) 09/11/18 14:54 RPR Titer Nonreactive (NONREACTIVE) 09/10/18 13:50 labs reviewed Pertinent Admission Physical Exam Findings: withdrawal symptoms - Treatment Hospital Course: Detox Protocol Followed, Detoxed Safely, Responded well, Discharged Condition Good, Rehab Referral Accepted Patient has Accepted a Rehab Referral to: [facility] - Medication Discharge Medications: Ambulatory Orders Sertraline HCl [Zoloft] 100 mg PO DAILY #30 tablet 09/11/18 Gabapentin [Neurontin -] 300 mg PO HS #30 capsule 09/12/18 Tizanidine HCl 4 mg PO DAILY #30 tablet 09/12/18 - Diagnosis (1) Alcohol dependence with uncomplicated withdrawal Current Visit: Yes Status: Acute (2) Cannabis abuse Current Visit: Yes Status: Acute (3) Cocaine dependence Current Visit: Yes Status: Acute Qualifiers: Substance use status: uncomplicated Qualified Code(s): F14.20 - Cocaine dependence, uncomplicated (4) Laceration of nail bed of toe Current Visit: Yes Status: Acute Qualifiers: Encounter type: initial encounter Qualified Code(s): S91.219A - Laceration without foreign body of unspecified toe(s) with damage to nail, initial encounter (5) Weight loss Current Visit: Yes Status: Acute (6) Chronic back pain Current Visit: Yes Status: Chronic Qualifiers: Back pain location: low back pain Back pain laterality: bilateral Sciatica presence: with sciatica Sciatica laterality: bilateral sciatica Qualified Code(s): M54.42 - Lumbago with sciatica, left side; M54.41 - Lumbago with sciatica, right side; G89.29 - Other chronic pain (7) Cocaine dependence, uncomplicated Current Visit: Yes Status: Chronic (8) Low back pain Current Visit: No Status: Chronic Qualifiers: Chronicity: unspecified (9) Mood disorder Current Visit: No Status: Acute - AMA Did Patient Leave Against Medical Advice: No
[2018-09-14 09:59] VITALS: BP 154/91; PULSE 74; TEMP 98.4
[2018-09-14] MEDS: TIZANIDINE HCL 4 MG TABLET PO SCH (10:09)
[2018-09-14] MEDS: PRENATAL VITAMINS W/ FOLIC ACID TABLET (FP) PO SCH (10:09)
[2018-09-14] MEDS: BACITRACIN 0.9 GM PACKET TP SCH (10:09)
[2018-09-14] MEDS: RANITIDINE HCL 150 MG TABLET (FP) PO SCH (10:10)
[2018-09-14] MEDS: SERTRALINE HCL 50 MG TABLET (FP) PO SCH (10:10)
[2018-09-14] MEDS: LIDOCAINE 5% TOPICAL PATCH TP SCH (10:11)
[2018-09-14] MEDS ORDERED: guaiFENesin 200 MG/10 ML 10 ML UNIT-DOSE CUPS PO PRN (16:12)
[2018-09-14] MEDS ORDERED: MAGNESIUM HYDROX 2400MG/30ML ORAL SUSPENSION 30 ML CUP PO PRN (16:12)
[2018-09-14] MEDS ORDERED: MENTHOL/PHENOL 1 EACH UD MM PRN (16:12)
[2018-09-14] MEDS ORDERED: P-EPHED 60MG/TRIPROLIDI 2.5MG TABLET PO PRN (16:12)
[2018-09-14] MEDS ORDERED: ACETAMINOPHEN 325 MG TABLET (FP) PO PRN (16:12)
[2018-09-14] MEDS ORDERED: NICOTINE POLACRILEX 2 MG GUM BUC PRN (16:12)
[2018-09-14] MEDS ORDERED: MAG HYDROX/AL HYDROX/SIMETH 30 ML UNIT-DOSE CUP PO PRN (16:12)
[2018-09-14] MEDS ORDERED: MELATONIN 5 MG TABLETS PO PRN (22:00)
[2018-09-14] MEDS ORDERED: THIAMINE HCL 100 MG TABLET (FP) PO SCH (22:00)
[2018-09-15] MEDS ORDERED: PRENATAL VITAMINS W/ FOLIC ACID TABLET (FP) PO SCH (10:00)
[2018-09-15] MEDS ORDERED: NICOTINE 14 MG/24 HOURS TOPICAL PATCH TD SCH (10:00)
== END 2018-09-14 14:29 | disposition other institution (70) | DRG 897 ==
LOC: YASAS 11:00 → Y6N 14:10
PROVIDERS: ADMIT Surgery; ATTEND Surgery
PROC: HZ2ZZZZ Detoxification Services for Substance Abuse Treatment (ICD-10-PCS; principal; 2018-09-10)
DX: F10.230 Alcohol dependence with withdrawal, uncomplicated (principal); F14.20 Cocaine dependence, uncomplicated; F19.282 Other psychoactive substance dependence with psychoactive substance-induced sleep disorder; F12.20 Cannabis dependence, uncomplicated; F39 Unspecified mood [affective] disorder; F32.9 Major depressive disorder, single episode, unspecified; R63.4 Abnormal weight loss; M54.42 Lumbago with sciatica, left side; G89.29 Other chronic pain; K59.04 Chronic idiopathic constipation; G62.9 Polyneuropathy, unspecified; R00.0 Tachycardia, unspecified; Z87.438 Personal history of other diseases of male genital organs; Z87.891 Personal history of nicotine dependence
CPT/HCPCS: 36415; 71046-TC-FY; 80053; 81003; 85027; 85660; 86593; 93005; 93010

== ENCOUNTER 2018-09-14 14:34 | Inpatient (IN) | payer MEDICARE, OTHER ==
--- NOTE | 2018-09-14 16:08 | HP ---
[facility] Rehab Assess/Revision - Admission History Admitted to Rehab from: [address] - Vital signs Vital Signs: Vital Signs Period Temp Pulse Resp BP Sys/Tan Pulse Ox Last 24 Hr 98.3 F 77 18 115/66 - Findings Detox History & Physical reviewed: Yes Concur with findings: Yes Comments/Additional Findings: Pt is medically stable to be discharged to [facility] rehab unit Inpatient Rehab Admission - Rehab Decision to Admit Inpatient rehab admission?: Yes - Initial Determination Are CD services needed?: Yes Free of communicable disease: Yes Not in need of hospitalization: Yes - Rehab Admission Criteria Previous failed treatment: Yes Poor recovery environment: Yes Comorbidities: Yes Lacks judgement: No Patient is meeting Inpatient Rehab admission criteria:: Yes
[2018-09-14] MEDS ORDERED: ACETAMINOPHEN 325 MG TABLET (FP) PO PRN (18:38)
[2018-09-14] MEDS ORDERED: IBUPROFEN 400 MG TABLET (FP) PO PRN (18:38)
[2018-09-14] MEDS ORDERED: guaiFENesin 200 MG/10 ML 10 ML UNIT-DOSE CUPS PO PRN (18:38)
[2018-09-14] MEDS ORDERED: LOPERAMIDE HCL 2 MG CAPSULE PO PRN (18:38)
[2018-09-14] MEDS ORDERED: MENTHOL/PHENOL 1 EACH UD MM PRN (18:38)
[2018-09-14] MEDS ORDERED: hydrOXYzine PAMOATE 50 MG CAPSULE (FP) PO PRN (18:38)
[2018-09-14] MEDS ORDERED: MAGNESIUM HYDROX 2400MG/30ML ORAL SUSPENSION 30 ML CUP PO PRN (18:38)
[2018-09-14] MEDS ORDERED: MAGNESIUM CITRATE 300 ML BOTTLE PO PRN (18:38)
[2018-09-14] MEDS ORDERED: MELATONIN 5 MG TABLETS PO PRN (22:00)
[2018-09-14] MEDS: THIAMINE HCL 100 MG TABLET (FP) PO SCH (22:17)
[2018-09-14] MEDS: GABAPENTIN 300 MG CAPSULE (FP) PO SCH (22:17)
[2018-09-15] MEDS ORDERED: SERTRALINE HCL 50 MG TABLET (FP) PO ONE (10:33)
[2018-09-15] MEDS: PRENATAL VITAMINS W/ FOLIC ACID TABLET (FP) PO SCH (10:36)
[2018-09-15] MEDS: CEPHALEXIN MONOHYDRATE 250 MG CAPSULE (FP) PO SCH ×3 (11:54→23:04)
--- NOTE | 2018-09-15 13:13 | CONSULT ---
[facility] Psychiatric Consult - Data Date of interview: 09/15/18 Admission source: [facility] Identifying data: Patient is a 53 y/o male single father of one child, unemployed, domiciled SSI recipient Substance Abuse History: He is admitted to the unit due ETOH, crack, coacaine and marijuana abuse. Patient explained that he has been sober for the past one year and relapsed 2 mo ago . He has been in rehab @ [facility] 2 years ago then referred to Rehab. He drinks whiskey, beer smokes marijuana and occaionally sniff Heroin. Please refer to addiction counselor note for more detailed drug use history Medical History: Sciatica, Neuropathy , chronic back pain. 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 He is treated with Zoloft 100 mg po daily, and tolerates his medciation well with no side effects. He reports a remote history of self cutting behavior during his latency age. He denies feeling depressed or anxious , denies mood swings, denies suicidal or homicidal ideation. Overall he feels fine. Occasional sleep disturbances has a good appetite Physical/Sexual Abuse/Trauma History: Denied Mental Status Exam - Mental Status Exam Alert and Oriented to: Time, Place, Person Cognitive Function: Grossly Intact Patient Appearance: Well Groomed Mood: Euthymic Affect: Appropriate Patient Behavior: Appropriate, Cooperative Speech Pattern: Clear Voice Loudness: Normal Thought Process: Intact, Goal Oriented Thought Disorder: Not Present Hallucinations: None Suicidal Ideation: None Homicidal Ideation: None Insight/Judgement: Poor Sleep: Fair Appetite: Good Muscle strength/Tone: Normal Gait/Station: Normal Psychiatric Findings - Problem List ([place] 1, 2,3) (1) Alcohol dependence with uncomplicated withdrawal Current Visit: No Status: Acute (2) Cannabis abuse Current Visit: No Status: Acute (3) Cocaine dependence Current Visit: No Status: Acute Qualifiers: Substance use status: uncomplicated Qualified Code(s): F14.20 - Cocaine dependence, uncomplicated (4) Substance-induced sleep disorder Current Visit: No Status: Acute (5) Chronic back pain Current Visit: No Status: Chronic Qualifiers: Back pain location: low back pain Back pain laterality: bilateral Sciatica presence: with sciatica Sciatica laterality: bilateral sciatica Qualified Code(s): M54.42 - Lumbago with sciatica, left side; M54.41 - Lumbago with sciatica, right side; G89.29 - Other chronic pain (6) MDD (major depressive disorder) Current Visit: No Status: Chronic (7) Neuropathy Current Visit: No Status: Chronic (8) Sciatica Current Visit: No Status: Chronic - Initial Treatment Plan Initial Treatment Plan: Psychoeducation. Continue Detox treatment. Zoloft 100 mg po daily. Moniotr progress
[2018-09-15] MEDS ORDERED: SERTRALINE HCL 50 MG TABLET (FP) PO SCH (13:30)
[2018-09-15] MEDS: GABAPENTIN 300 MG CAPSULE (FP) PO SCH (22:18)
[2018-09-15] MEDS: THIAMINE HCL 100 MG TABLET (FP) PO SCH (22:18)
[2018-09-16] MEDS: CEPHALEXIN MONOHYDRATE 250 MG CAPSULE (FP) PO SCH ×4 (06:30→23:14)
[2018-09-16] MEDS ORDERED: PATIENT'S OWN MEDICATION (NON-FORMULARY) (Sertraline Hcl [Zoloft] 100 MG) PO SCH (10:00)
[2018-09-16] MEDS: SERTRALINE HCL 50 MG TABLET (FP) PO SCH (10:40)
[2018-09-16] MEDS: PRENATAL VITAMINS W/ FOLIC ACID TABLET (FP) PO SCH (10:40)
[2018-09-16] MEDS: MAG HYDROX/AL HYDROX/SIMETH 30 ML UNIT-DOSE CUP PO PRN (16:45)
[2018-09-16] MEDS: GABAPENTIN 300 MG CAPSULE (FP) PO SCH (21:29)
[2018-09-16] MEDS: THIAMINE HCL 100 MG TABLET (FP) PO SCH (21:29)
[2018-09-17] MEDS: CEPHALEXIN MONOHYDRATE 250 MG CAPSULE (FP) PO SCH ×3 (06:54→17:45)
[2018-09-17] MEDS: PRENATAL VITAMINS W/ FOLIC ACID TABLET (FP) PO SCH (10:38)
[2018-09-17] MEDS: SERTRALINE HCL 50 MG TABLET (FP) PO SCH (10:38)
--- NOTE | 2018-09-17 12:01 | PN ---
[facility] Progress Note Note: PT IS ON KEFLEX FROM DETOX RELATED TO LEFT GREAT AND SECOND TOES AND INFECTION. REPORTS HE HAD TORN OFF PART OF HIS NAIL AT HOME AND SAW PUS COMING OUT. KEFLEX WAS STARTED ON ADMISSION TO DETOX. PT ALSO C/O HEARTBURN AND WAS ON ZANTAC. WANTS TO CONTINUE HERE. Vital Signs - 24 hr 09/17/18 09/17/18 09/17/18 00:30 03:30 06:34 Temperature 98.0 F Pulse Rate 79 Respiratory 18 18 18 Rate Blood Pressure 124/76 LEFT GREAT AND 2ND TOES:CLEAN, NO DRAINAGE. A;RESOLVING FOOT INFECTION. PLAN:BACITRACIN DIRECTED. COMPLETE CURRENT COURSE OF KEFLEX THEN D/C. REORDER ZANTAC 150 MG PO BID
[2018-09-17] MEDS: RANITIDINE HCL 150 MG TABLET (FP) PO SCH ×2 (14:31→21:24)
[2018-09-17] MEDS: BACITRACIN 0.9 GM PACKET TP SCH ×2 (14:31→21:24)
[2018-09-17] MEDS: THIAMINE HCL 100 MG TABLET (FP) PO SCH (21:24)
[2018-09-17] MEDS: GABAPENTIN 300 MG CAPSULE (FP) PO SCH (21:25)
[2018-09-18] MEDS: CEPHALEXIN MONOHYDRATE 250 MG CAPSULE (FP) PO SCH ×5 (00:34→23:45)
[2018-09-18] MEDS: BACITRACIN 0.9 GM PACKET TP SCH ×2 (09:34→21:24)
[2018-09-18] MEDS: PRENATAL VITAMINS W/ FOLIC ACID TABLET (FP) PO SCH (09:34)
[2018-09-18] MEDS: SERTRALINE HCL 50 MG TABLET (FP) PO SCH (09:35)
[2018-09-18] MEDS: RANITIDINE HCL 150 MG TABLET (FP) PO SCH ×2 (09:35→21:24)
[2018-09-18] MEDS: THIAMINE HCL 100 MG TABLET (FP) PO SCH (21:24)
[2018-09-18] MEDS: GABAPENTIN 300 MG CAPSULE (FP) PO SCH (21:24)
[2018-09-19] MEDS: CEPHALEXIN MONOHYDRATE 250 MG CAPSULE (FP) PO SCH ×4 (06:48→23:21)
[2018-09-19] MEDS: P-EPHED 60MG/TRIPROLIDI 2.5MG TABLET PO PRN ×2 (06:49→14:47)
[2018-09-19] MEDS: RANITIDINE HCL 150 MG TABLET (FP) PO SCH ×2 (10:20→21:26)
[2018-09-19] MEDS: BACITRACIN 0.9 GM PACKET TP SCH ×2 (10:20→21:26)
[2018-09-19] MEDS: SERTRALINE HCL 50 MG TABLET (FP) PO SCH (10:21)
[2018-09-19] MEDS: PRENATAL VITAMINS W/ FOLIC ACID TABLET (FP) PO SCH (10:21)
[2018-09-19] MEDS: THIAMINE HCL 100 MG TABLET (FP) PO SCH (21:26)
[2018-09-19] MEDS: GABAPENTIN 300 MG CAPSULE (FP) PO SCH (21:26)
[2018-09-20] MEDS: CEPHALEXIN MONOHYDRATE 250 MG CAPSULE (FP) PO SCH ×3 (06:30→17:17)
[2018-09-20] MEDS: P-EPHED 60MG/TRIPROLIDI 2.5MG TABLET PO PRN ×3 (06:30→21:24)
[2018-09-20] MEDS: PRENATAL VITAMINS W/ FOLIC ACID TABLET (FP) PO SCH (09:42)
[2018-09-20] MEDS: SERTRALINE HCL 50 MG TABLET (FP) PO SCH (09:42)
[2018-09-20] MEDS: BACITRACIN 0.9 GM PACKET TP SCH ×2 (09:42→21:24)
[2018-09-20] MEDS: RANITIDINE HCL 150 MG TABLET (FP) PO SCH ×2 (09:42→21:24)
[2018-09-20] MEDS: GABAPENTIN 300 MG CAPSULE (FP) PO SCH (21:23)
[2018-09-20] MEDS: THIAMINE HCL 100 MG TABLET (FP) PO SCH (21:24)
[2018-09-21] MEDS: P-EPHED 60MG/TRIPROLIDI 2.5MG TABLET PO PRN ×2 (06:28→14:58)
[2018-09-21] MEDS: SERTRALINE HCL 50 MG TABLET (FP) PO SCH (10:03)
[2018-09-21] MEDS: PRENATAL VITAMINS W/ FOLIC ACID TABLET (FP) PO SCH (10:03)
[2018-09-21] MEDS: RANITIDINE HCL 150 MG TABLET (FP) PO SCH ×2 (10:03→21:24)
[2018-09-21] MEDS: BACITRACIN 0.9 GM PACKET TP SCH ×2 (10:03→21:24)
[2018-09-21] MEDS: THIAMINE HCL 100 MG TABLET (FP) PO SCH (21:24)
[2018-09-21] MEDS: GABAPENTIN 300 MG CAPSULE (FP) PO SCH (21:24)
[2018-09-22] MEDS: P-EPHED 60MG/TRIPROLIDI 2.5MG TABLET PO PRN ×2 (06:26→14:37)
[2018-09-22] MEDS: SERTRALINE HCL 50 MG TABLET (FP) PO SCH (10:04)
[2018-09-22] MEDS: PRENATAL VITAMINS W/ FOLIC ACID TABLET (FP) PO SCH (10:04)
[2018-09-22] MEDS: BACITRACIN 0.9 GM PACKET TP SCH ×2 (10:04→21:23)
[2018-09-22] MEDS: RANITIDINE HCL 150 MG TABLET (FP) PO SCH ×2 (10:04→21:21)
[2018-09-22] MEDS: THIAMINE HCL 100 MG TABLET (FP) PO SCH (21:21)
[2018-09-22] MEDS: GABAPENTIN 300 MG CAPSULE (FP) PO SCH (21:21)
[2018-09-22] MEDS: MAG HYDROX/AL HYDROX/SIMETH 30 ML UNIT-DOSE CUP PO PRN (21:22)
[2018-09-23] MEDS: P-EPHED 60MG/TRIPROLIDI 2.5MG TABLET PO PRN (06:26)
[2018-09-23] MEDS: SERTRALINE HCL 50 MG TABLET (FP) PO SCH (10:00)
[2018-09-23] MEDS: BACITRACIN 0.9 GM PACKET TP SCH ×2 (10:00→21:39)
[2018-09-23] MEDS: PRENATAL VITAMINS W/ FOLIC ACID TABLET (FP) PO SCH (10:00)
--- NOTE | 2018-09-23 11:11 | PN ---
[facility] Progress Note Note: PT C/O FRONTAL HEADACHE AND NASAL CONGESTION STATING HX OF ALLERGY AND TAKES CLARITIN AT HOME. PT DENIES OTHER URI SX . ALERT O X 3. Vital Signs 09/23/18 09/23/18 03:30 07:09 Temperature 98.0 F Pulse Rate 77 Respiratory 18 18 Rate Blood Pressure 124/75 PLAN:RESTART CLARITIN 10 MG PO DAILY.
[2018-09-23] MEDS: LORATADINE 10 MG TABLET PO SCH (12:17)
[2018-09-23] MEDS: RANITIDINE HCL 150 MG TABLET (FP) PO SCH ×2 (12:17→21:39)
[2018-09-23] MEDS: GABAPENTIN 300 MG CAPSULE (FP) PO SCH (21:39)
[2018-09-23] MEDS: THIAMINE HCL 100 MG TABLET (FP) PO SCH (21:39)
[2018-09-24] MEDS: SERTRALINE HCL 50 MG TABLET (FP) PO SCH (09:46)
[2018-09-24] MEDS: LORATADINE 10 MG TABLET PO SCH (09:46)
[2018-09-24] MEDS: PRENATAL VITAMINS W/ FOLIC ACID TABLET (FP) PO SCH (09:46)
[2018-09-24] MEDS: RANITIDINE HCL 150 MG TABLET (FP) PO SCH ×2 (09:46→21:43)
[2018-09-24] MEDS: BACITRACIN 0.9 GM PACKET TP SCH ×2 (09:47→21:43)
[2018-09-24] MEDS: GABAPENTIN 300 MG CAPSULE (FP) PO SCH (21:43)
[2018-09-24] MEDS: THIAMINE HCL 100 MG TABLET (FP) PO SCH (21:43)
[2018-09-25] MEDS: SERTRALINE HCL 50 MG TABLET (FP) PO SCH (10:03)
[2018-09-25] MEDS: BACITRACIN 0.9 GM PACKET TP SCH ×2 (10:03→21:24)
[2018-09-25] MEDS: PRENATAL VITAMINS W/ FOLIC ACID TABLET (FP) PO SCH (10:03)
[2018-09-25] MEDS: RANITIDINE HCL 150 MG TABLET (FP) PO SCH ×2 (10:03→21:24)
[2018-09-25] MEDS: LORATADINE 10 MG TABLET PO SCH (10:03)
[2018-09-25] MEDS ORDERED: TIZANIDINE HCL 4 MG TABLET PO PRN (13:45)
[2018-09-25] MEDS: THIAMINE HCL 100 MG TABLET (FP) PO SCH (21:24)
[2018-09-25] MEDS: GABAPENTIN 300 MG CAPSULE (FP) PO SCH (21:24)
[2018-09-26] MEDS: RANITIDINE HCL 150 MG TABLET (FP) PO SCH ×2 (10:19→21:28)
[2018-09-26] MEDS: SERTRALINE HCL 50 MG TABLET (FP) PO SCH (10:19)
[2018-09-26] MEDS: PRENATAL VITAMINS W/ FOLIC ACID TABLET (FP) PO SCH (10:19)
[2018-09-26] MEDS: LORATADINE 10 MG TABLET PO SCH (10:19)
[2018-09-26] MEDS: BACITRACIN 0.9 GM PACKET TP SCH ×2 (11:01→21:29)
--- NOTE | 2018-09-26 15:09 | PN ---
[facility] Progress Note Note: Patient is scheduled for discharge tomorrow. Script for 30 days supply of Seroquel 100 mg po daily will be electronically transmitted to [facility] at [address] [place], [place] [id number]
[2018-09-26] MEDS: GABAPENTIN 300 MG CAPSULE (FP) PO SCH (21:28)
[2018-09-26] MEDS: THIAMINE HCL 100 MG TABLET (FP) PO SCH (21:28)
[2018-09-27 06:36] VITALS: BP 122/74; PULSE 86; TEMP 98
[2018-09-27] MEDS: LORATADINE 10 MG TABLET PO SCH (09:56)
[2018-09-27] MEDS: SERTRALINE HCL 50 MG TABLET (FP) PO SCH (09:56)
[2018-09-27] MEDS: PRENATAL VITAMINS W/ FOLIC ACID TABLET (FP) PO SCH (11:21)
[2018-09-27] MEDS: BACITRACIN 0.9 GM PACKET TP SCH (11:21)
[2018-09-27] MEDS: RANITIDINE HCL 150 MG TABLET (FP) PO SCH (11:21)
--- NOTE | 2018-09-27 11:25 | PN ---
S Progress Note Note: PT COMPLETED WITH REHAB AND DISCHARGED TODAY. PT WAS REFERRED TO [facility] ON [address] [place], [place]. PT REPORTS HE HAS A PCP, DR. MCCANN ON [address] [place], [place] FOR MEDICAL MANAGEMENT. [facility] ELECTRONICALLY SENT TO [facility] FOR TEACHER LIP READING. PT IS ALERT O X 3. DENIES S/H/I. Home Medications Medication Instructions Recorded Gabapentin [Neurontin -] 300 mg PO HS #30 capsule 09/12/18 Tizanidine HCl 4 mg PO DAILY #30 tablet 09/12/18 Loratadine [Claritin] 10 mg PO DAILY 09/23/18 Ranitidine [Zantac -] 150 mg PO BID #60 tablet 09/26/18 Sertraline HCl [Zoloft] 100 mg PO DAILY #30 tablet 09/26/18 Vital Signs - 24 hr 09/27/18 09/27/18 09/27/18 00:30 03:30 06:35 Temperature 98.0 F Pulse Rate 86 Respiratory 18 18 18 Rate Blood Pressure 122/74 NAD MEDICALLY STABLE PLAN:FOLLOW UP WITH CD AFTERCARE RECOMMENDATIONS. FOLLOW UP WITH [facility] WITHIN 1-2 WEEKS AFTER DISCHARGE.
== END 2018-09-27 10:20 | disposition home or self-care (01) | DRG 895 ==
LOC: YASAS 14:34 → Y5N 14:36
PROVIDERS: ADMIT Neuromusculoskeletal Medicine & OMM; ATTEND Neuromusculoskeletal Medicine & OMM
PROC: HZ42ZZZ Group Counseling for Substance Abuse Treatment, Cognitive-Behavioral (ICD-10-PCS; principal; 2018-09-14)
DX: F10.20 Alcohol dependence, uncomplicated (principal); F14.20 Cocaine dependence, uncomplicated; F12.10 Cannabis abuse, uncomplicated; K21.9 Gastro-esophageal reflux disease without esophagitis; R51 Headache; R09.81 Nasal congestion; L03.032 Cellulitis of left toe; S91.202A Unspecified open wound of left great toe with damage to nail, initial encounter; S91.205A Unspecified open wound of left lesser toe(s) with damage to nail, initial encounter; X58.XXXA Exposure to other specified factors, initial encounter; Y93.89 Activity, other specified; Y92.89 Other specified places as the place of occurrence of the external cause